=== PATIENT | male | born 1975 | race African-American/Black ===

== ENCOUNTER 2022-09-20 10:59 | Outpatient (CLI) | payer OTHER, SELFPAY ==
--- NOTE | ~2022-09-20 | XR_ITS ---
Clinical Indication: Tobacco use PA and lateral views of the chest: Comparison: None Findings: The lungs are clear, without evidence of focal consolidation or pleural effusion. Cardiome diastinal silhouette is within normal limits. Bones and soft tissues are unremarkable. Impression: Normal chest. Reviewed, dictated and finalized at location . Impression: Normal chest.
--- NOTE | ~2022-09-20 | XR_ITS ---
EXAM: XR lumbar spine 2-3V DATE: 09/20/2022 11:34 HISTORY: TOBACCO USE;LBP DENIES CHEST COMPLAINTS NO RADICULOPATHY . COMPARISON: Chest x-ray, same date . FINDINGS: 5 nonrib-bearing lumbar-type vertebral bodies. Pedicles intact. Normal vertebral body alig nment. Vertebral body heights preserved. mild L5-S1 disc space narrowing and marginal osteophytosis. Mild lower lumbar facet hypertrophy and sclerosis. No fracture or dislocation. IMPRESSION: Mild degenerative disc disease at L5-S1. Mild lower lumbar facet arthropathy. Reviewed, dictated and finalized at location K. IMPRESSION: Mild degenerative disc disease at L5-S1. Mild lower lumbar facet ar thropathy.
== END 2022-09-20 11:00 | disposition home or self-care (01) ==
LOC: ANHIMG 11:07
PROVIDERS: PCP Emergency Medicine; Visit Provider Emergency Medicine
DX: M54.50 Low back pain, unspecified (principal); Z87.891 Personal history of nicotine dependence; M51.37 Other intervertebral disc degeneration, lumbosacral region
CPT/HCPCS: 71046; 72100

== ENCOUNTER 2023-02-04 09:57 | Outpatient (CLI) | payer OTHER, SELFPAY ==
--- NOTE | ~2023-02-04 | US_ITS ---
Limited Abdominal Sonogram: Real-time sonographic imaging of the right upper quadrant was performed. Clinical History: Right upper quadrant pain Findings: The liver appears normal with no evidence of mass lesion or bile duct dilatation. Main por svetlana vein demonstrates normal direction of flow. The gallbladder is well distended, and contains echog enic stones. No gallbladder wall thickening. The common bile duct measures 7 mm. The visualized panc reas, aorta, and IVC are unremarkable. Impression: Cholelithiasis. Reviewed, dictated and finalized at location M. Impression: Cholelithiasis.
== END 2023-02-04 09:58 | disposition home or self-care (01) ==
PROVIDERS: PCP Emergency Medicine; Visit Provider Emergency Medicine
DX: R10.11 Right upper quadrant pain (principal); K80.20 Calculus of gallbladder without cholecystitis without obstruction
CPT/HCPCS: 76705